=== PATIENT | male | born 1995 | race Caucasian/White ===

== ENCOUNTER 2016-12-17 22:02 | Emergency (ER) | payer SELFPAY ==
[~2016-12-17] VITALS: Ht 175.3 cm; Wt 70.0 kg
[2016-12-18 00:22] LABS: GLUCOSE,POINT OF CARE 159 MG/DL (70-110)
[2016-12-18 02:32] VITALS: BP 115/62
== END 2016-12-18 02:37 | disposition home or self-care (01) ==
LOC: EMS 22:05
DX: F10.129 Alcohol abuse with intoxication, unspecified (principal); Y90.8 Blood alcohol level of 240 mg/100 ml or more
CPT/HCPCS: 36415; 82962; 99283; G0480